=== PATIENT | female | born 1955 | race African-American/Black ===

== ENCOUNTER 2021-04-21 07:56 | Day surgery (SDC) | payer MEDICARE ==
[2021-04-21] MEDS ORDERED: Lidocaine 1% MPF 2 ML VIAL ONE (08:30)
[2021-04-21] MEDS ORDERED: PROPOFOL 40 ML ONE (09:46)
[2021-04-21] MEDS ORDERED: Glycopyrrolate 0.2 MG/ML 5 ML SYRINGE ONE (10:19)
== END 2021-04-21 11:25 | disposition home or self-care (01) ==
LOC: CSHSDC 07:56 → EDBD 15:00
PROVIDERS: ATTEND Internal Medicine Gastroenterology
PROC: 0DJD8ZZ Inspection of Lower Intestinal Tract, Via Natural or Artificial Opening Endoscopic (ICD-10-PCS; principal; 2021-04-21)
DX: K92.2 Gastrointestinal hemorrhage, unspecified (principal); D64.9 Anemia, unspecified; K64.9 Unspecified hemorrhoids; I48.91 Unspecified atrial fibrillation; I10 Essential (primary) hypertension; E78.5 Hyperlipidemia, unspecified; I25.10 Atherosclerotic heart disease of native coronary artery without angina pectoris; J44.9 Chronic obstructive pulmonary disease, unspecified
CPT/HCPCS: J2704